=== PATIENT | female | born 1985 | race Caucasian/White ===

== ENCOUNTER → 2017-06-17 | Outpatient (CLI) | payer BC ==
--- NOTE | 2017-06-17 14:47 | FL ---
EXAMINATION TYPE: FL arthrogram wrist RT DATE OF EXAM: 06/17/2017 CLINICAL HISTORY: Right wrist pain. Fluoroscopy for arthrogram. TECHNIQUE: Frontal, lateral and oblique images of the right wrist are obtained. COMPARISON: None FINDINGS/IMPRESSION intra-articular injection of contrast was performed at the radiocarpal joint. Ini tial instillation of contrast demonstrated tenderness extravasation utilizing approximately 1.5 mL of Omnipaque. Second injection demonstrated a small amount of contrast within the proximal carpal row u tilizing 1.5 L of Omnipaque. 2 mm of Omnipaque was wasted. 7 images were saved.
--- NOTE | 2017-06-17 15:04 | CT ---
EXAMINATION TYPE: CT wrist RT w con DATE OF EXAM: 06/17/2017 COMPARISON: Left wrist arthrogram of the same date. HISTORY: pain CT DLP: 73.6 mGycm Automated exposure control for dose reduction was used. CONTRAST: Performed with IV Contrast, patient injected with 5 mL of Omnipaque 240. FINDINGS: Despite 2 injections only minimal amount of contrast is seen within the joint space, therefore there is slight limitation. Subchondral cysts are seen within the lunate, capitellum and triquetrum. There is no erosion of the u lnar styloid. The triangular fibrocartilage appears intact. There is no joint space narrowing evident . There is attenuation of the extensor pollicis longus and extensor pollicis brevis tendons as well a s of the flexor pollicis longus and compartments 1 and 2. There is no evidence of acute fracture or a vulsion injury. Within the limitations of CT cartilage appears unremarkable. Muscle volume also appea rs unremarkable. There is no evidence of malalignment, periosteal reaction, suspicious aggressive oss eous lesion, or radiopaque foreign body. No focal soft tissue swelling is seen. No carpal carpal inte rval widening. IMPRESSION: 1. ATTENUATION OF THE EXTENSOR POLLICIS LONGUS, EXTENSOR POLLICIS BREVIS, AND FLEXOR POLLICIS LONGUS AND COMPARTMENT 1 AND COMPARTMENT 2 SUGGESTING UNDERLYING TENOSYNOVITIS. 2. SUBOPTIMAL CONTRAST ADMINISTRATION SOMEWHAT LIMITING EVALUATION ALTHOUGH NO DISTINCT TRIANGULAR FI BROCARTILAGE TEAR OR SECONDARY SIGNS OF CARPAL CARPAL LIGAMENT INJURY. 3. FEW OSSEOUS SUBCHONDRAL CYSTS WITHIN THE PROXIMAL AND DISTAL CARPAL ROWS SUGGESTING UNDERLYING EAR LY MILD ARTHROPATHY. NO EROSION OF THE ULNAR STYLOID TO INDICATE RHEUMATOID ARTHRITIS. NO CALCIFICATI ON OF THE TFC TO SUGGEST CPPD.
--- NOTE | 2017-06-17 15:07 | FL ---
EXAMINATION TYPE: FL arthrogram wrist LT DATE OF EXAM: 06/17/2017 2:40 PM CLINICAL HISTORY: Left wrist pain. TECHNIQUE: Fluoroscopy was performed of the left wrist. 1.5 mL of Omnipaque 240 was utilized and 28 s econds of fluoroscopy time with 4 images saved. COMPARISON: None. FINDINGS/ IMPRESSION: Intra-articular injection of contrast was performed at the radiocarpal joint of the left wrist. Initial instillation of 1.5 mL of Omnipaque 240 demonstrates contrast within the joint space.
--- NOTE | 2017-06-17 15:16 | CT ---
EXAMINATION TYPE: CT wrist LT w con DATE OF EXAM: 06/17/2017 HISTORY: pain COMPARISON: Right wrist arthrogram the same date. CT DLP: 80.5 mGycm. Automated Exposure Control for Dose Reduction was Utilized. TECHNIQUE: CT scan of the left wrist was obtained with intra-articular injection of 1.5 mL of Omnipa que 240. FINDINGS: There is no evidence of fracture or dislocation. Prominent vascular grooves are noted of the capitell um and triquetrum. No subchondral cysts are seen. There is no widening of the carpal carpal intervals . Contrast is maintained within the proximal carpal row and does not extend into the distal radial ul vera joint. No evidence of TFC tear. No evidence of fracture or dislocation. Muscle volume appears sym metric. Tendons appear of symmetric attenuation. No calcification within the TFC. No ulnar styloid er osion. No aggressive periosteal reaction, foreign body, or suspicious osseous lesion. IMPRESSION: Unremarkable right wrist CT an arthrogram.
== END | disposition home or self-care (01) ==
LOC: RADFLMAIN 13:07
PROVIDERS: ATTEND Orthopaedic Surgery Hand Surgery
DX: M25.831 Other specified joint disorders, right wrist (principal); S63.502A Unspecified sprain of left wrist, initial encounter
CPT/HCPCS: 25246 ×2; 73115 ×2; 73201 ×2; Q9966

== ENCOUNTER → 2024-02-10 | Outpatient (CLI) | payer BC ==
--- NOTE | 2024-02-12 09:57 | US ---
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 The intrahepatic portion of the IVC and proximal abdominal aorta are within normal limits. There is no evidence of cholelithiasis. Common bile duct is unremarkable. The visu alized portions of the pancreas are homogenous. The spleen is unremarkable. Kidneys are symmetric a nd free of hydronephrosis. No renal lesions are seen. IMPRESSION: Unremarkable study
== END | disposition home or self-care (01) ==
LOC: RADUSWWP 07:25
PROVIDERS: ATTEND Internal Medicine Hematology & Oncology
DX: D75.89 Other specified diseases of blood and blood-forming organs (principal); K76.9 Liver disease, unspecified; E03.9 Hypothyroidism, unspecified
CPT/HCPCS: 76700